=== PATIENT | female | born 1965 | race Caucasian/White ===

== ENCOUNTER 2018-11-01 06:20 | Day surgery (SDC) | payer OTHER ==
[2018-11-01] VITALS (17 sets, daily range): BP systolic 99–144; BP diastolic 61–92; PULSE 54–97; RESP 16–17; Ht 154.9 cm; Wt 57.7 kg
[~2018-11-01] VITALS: Ht 154.9 cm; Wt 57.7 kg
[~2018-11-01 06:20] MED LIST: ACET500T98 PO; CLINDAMYCIN 600 MG/D5W (PMX) 50 ML IVPB ONE; HYDR-3498 PO; IBUP-1542 PO; OSEL75CA23 PO; SOD CHLORIDE 0.9% 1,000 ML IV SCH
[2018-11-01] MEDS ORDERED: ONDA4TAB13 PO (07:26)
[2018-11-01] MEDS ORDERED: DOCU-144 PO (07:26)
[2018-11-01] MEDS ORDERED: FAMO40TA5 PO (07:27)
[2018-11-01] MEDS ORDERED: LORA10TA3 PO (07:27)
[2018-11-01] MEDS ORDERED: FLUT16SP17 NASAL (07:27)
[2018-11-01] MEDS ORDERED: BUPIVACAINE 0.25% (MPF) 30 ML INJ ONE (08:19)
--- NOTE | 2018-11-01 08:35 | PREAC ---
Date/Time of Note Date/Time of Note DATE: 11/01/18 TIME: 08:33 Anesthesia Eval and Record Evaluation Time Pre-Procedure Interview DATE: 11/01/18 TIME: 08:33 Age 53 Sex female NPO: 8 hrs Preoperative diagnosis Cholelithiasis Planned procedure Lap Cholecystectomy Past Medical History Past Medical History: Includes GI: Obesity Surgery & Anesthesia Issues No known issue Meds Anticoagulation: No Beta Kael within 24 hr: No Reason Beta Kael not given: Pt. not on B-Kael Reported Medications Fluticasone Propionate* (Fluticasone Propionate* Nasal) 50 Mcg/[place] - 16 Gm [place].susp, 1 SPRAY NASAL DAILY, #1 BOTTLE TO EACH NOSTRIL 11/01/18 Loratadine* (Loratadine*) 10 Mg Tablet, 10 MG PO DAILY, #30 TAB 11/01/18 Famotidine* (Famotidine*) 40 Mg Tablet, 40 MG PO HS, #30 TAB 11/01/18 Ondansetron Hcl* (Zofran*) 4 Mg Tab, 4 MG PO Q4H PRN for NAUSEA AND OR VOMITING, TAB 11/01/18 Docusate Sodium* (Colace*) 100 Mg Capsule, 100 MG PO DAILY, #30 CAP 11/01/18 Discontinued Scripts Hydrocodone Bit-Acetaminophen* ([place]*) 5-325 Mg Tab, 1 TAB PO QHS PRN for PAIN, #7 TAB 0 Refills Prov:FLO PATRICIO PA-C 08/18/15 Ibuprofen* (Motrin*) 600 Mg Tab, 600 MG PO BID, #30 TAB 0 Refills Prov:FLO PATRICIO PA-C 08/18/15 Acetaminophen (Tylenol) 500 Mg Tab, 500 MG PO Q6, #30 TAB 0 Refills Prov:FLO PATRICIO PA-C 08/18/15 Oseltamivir Phosphate* (Tamiflu*) 75 Mg Capsule, 75 MG PO BID, #10 CAP Prov:FLO PATRICIO PA-C 08/18/15 Current Medications Sodium Chloride 1,000 ml @ 75 mls/hr [id number] IV ; Start 11/01/18 at 06:00; Stop 11/01/18 at 23:00 Meds reviewed: Yes Allergies Coded Allergies: Penicillins (Verified Allergy, Unknown, 11/01/18) Allergies Reviewed: Yes Labs/Studies Labs Reviewed: Reviewed by anesthesiologist test: Negative Studies: ECG Pre-procedure Exam Last vitals Vital Signs Date Temp Pulse Resp B/P (MAP) Pulse Ox O2 O2 Flow FiO2 Time Delivery Rate 11/01/18 97.5 69 16 99/61 (74) 99 07:50 Airway: Adequate mouth opening, Adequate thyromental dist Mallampati: Mallampati II Teeth: Normal Lung: Normal Heart: Normal ASA Physical Status ASA physical status: 2 Emergency: None Planned Anesthetic General/MAC: ETT Planned Pain Management Parenteral pain med Pre-operative Attestations Prior to commencing anesthesia and surgery, the patient was re-evaluated, there was verification of: *The patient's identity *The results of appropriate recent lab work and preoperative vital signs *The above evaluation not changing prior to induction *Anesthetic plan, risk benefits, alternative and complications discussed with patient/family; questions answered; patient/family understands, accepts and wishes to proceed. HUDSON MENDES MD Nov 01, 2018 08:35
[2018-11-01] MEDS ORDERED: MIDAZOLAM 1 MG/ML 2 ML INJ ONE (08:38)
[2018-11-01] MEDS ORDERED: GLYCOPYRROLATE 0.4 MG INJ ONE (09:20)
[2018-11-01] MEDS ORDERED: NEOSTIGMINE 3 MG/3 ML SYRINGE ONE (09:20)
[2018-11-01] MEDS ORDERED: ONDANSETRON 4 MG INJ ONE ×2 (09:20→09:50)
[2018-11-01] MEDS ORDERED: CEFAZOLIN 1 GM INJ ONE (09:20)
[2018-11-01] MEDS ORDERED: ROCURONIUM 50 MG INJ ONE (09:20)
[2018-11-01] MEDS ORDERED: PROPOFOL 20 ML ONE (09:20)
[2018-11-01] MEDS ORDERED: LIDOCAINE 2% (SDV) 5 ML INJ ONE (09:20)
--- NOTE | 2018-11-01 09:27 | OPR ---
Date/Time of Note Date/Time of Note DATE: 11/01/18 TIME: 09:25 Operative Report Procedure Date: Nov 01, 2018 Preoperative Diagnosis symptomatic gallstones Postoperative Diagnosis same Operation/Procedure Performed laparoscopic cholecystectomy Surgeon see signature line Hand Roller none Anesthesia Type: general Estimated Blood Loss: 0 - 10 ml's Transfusion none Specimen gallbaldder Grafts/Implants none Complications none Pt Condition Post Procedure: stable Indications 53-year-old female with symptomatic gallstones. She requests surgical excision of her gallbladder. Risks alternatives benefits and personally discussed with the patient. Potential complications including but not limited to bleeding infection intra-abdominal organ injury, bile duct injury were discussed the patient. Patient expressed understanding and consents to the operation. Procedure Description Patient is taken to the OR and prepped and draped in usual sterile fashion. Surgical timeout was performed. IV antibiotics given. Due to prior incision in the infraumbilical space supraumbilical midline incision made with a 15 blade. Dissection with cautery skin of the fascia. 0 Vicryl stay sutures were placed on either side of midline. The midline is opened and a Grewal trocar was introduced. Pneumoperitoneum is established. Midepigastric 12 mm optical trochars placed under direct physician. Right upper quadrant right upper flank 5 mm optical trochars placed under direct visualization. Upon initial inspection there is some adhesions of the gallbladder were taken down bluntly. The gallbladder was grasped with the fundus retracted and lateral cephalad direction. [place] graspers were used to dissect out the cystic duct and cystic artery. The critical view was established. The cystic duct is divided with the clips proximal completion divisions performed lap scopic scissors. Cystic artery was clipped with 3 clips proximal to distal and the divisions performed laparoscopic scissors. Gallbladder was taken of the gallbladder bed. Good hemostasis times in the gallbladder bed. The gallbladder is retrieved Endo Catch bag. Suction irrigation is used. All ports removed under direct position. Midline supra umbilical incision was closed with a [id number] 0 Vicryl suture and the stay sutures also tied down. The skin was then closed with interrupted and running 4-0 Monocryl. Therapeutic contains local anesthesia was injected at the incision site. Dry dressings were applied. Adrián ZUÑIGA Nov 01, 2018 09:27
[2018-11-01] MEDS ORDERED: HYDROCODONE/APAP (5/325) TAB PO ONE (09:30)
--- NOTE | 2018-11-01 09:46 | PAC ---
Date/Time of Note Date/Time of Note DATE: 11/01/18 TIME: 09:45 Post-Anesthesia Notes Post-Anesthesia Note Last documented vital signs Vital Signs Date Temp Pulse Resp B/P (MAP) Pulse Ox O2 O2 Flow FiO2 Time Delivery Rate 11/01/18 97.5 69 16 99/61 (74) 99 07:50 Activity: WNL Respiratory function: WNL Cardiovascular function: WNL Mental status: Baseline Pain reasonably controlled: Yes Hydration appropriate: Yes Nausea/Vomiting absent: Yes Comments BP:105/54, P:88, T:98, Spo2:100% HUDSON MENEDS MD Nov 01, 2018 09:45
[2018-11-01] MEDS ORDERED: HYDROmorphONE 1 MG/ML SYG ONE (09:49)
[2018-11-01] MEDS ORDERED: METOCLOPRAMIDE 10 MG INJ IV PRN (10:00)
[2018-11-01] MEDS ORDERED: FENTAnyl 50 MCG/ML VIAL IV PRN (10:00)
[2018-11-01] MEDS ORDERED: HYDROmorphONE 1 MG/5 ML IV SYRINGE IV PRN ×2 (10:00)
[2018-11-01] MEDS ORDERED: MEPERIDINE 25 MG INJ IV PRN (10:00)
[2018-11-01] MEDS ORDERED: ONDANSETRON 4 MG INJ IV PRN (10:00)
[2018-11-01] MEDS ORDERED: DIPHENHYDRAMINE 50 MG INJ IV PRN (10:00)
[2018-11-01] MEDS ORDERED: HYDROmorphONE 1 MG/ML SYG IV SCH (10:05)
== END 2018-11-01 14:25 | disposition home or self-care (01) ==
LOC: SDS 06:20
PROVIDERS: ATTEND Surgery
DX: K80.20 Calculus of gallbladder without cholecystitis without obstruction (principal)
CPT/HCPCS: 47562; J0690; J1170; J2250; J2405; J2710; J2765; J3010; Z7512; Z7610; 88304